=== PATIENT | female | born 1945 | race African-American/Black ===

== ENCOUNTER → 2018-11-05 | Outpatient (CLI) | payer MEDICARE ==
--- NOTE | 2018-11-05 11:59 | KCIC ---
BRAIN W/O CONTRAST Date: 11/05/2018 10:15 AM Indication: Left facial tingling Comparison: CT head 07/04/2015. Technique: Multiplanar multisequence MRI of the brain was performed without intravenous contrast using the standard protocol. Findings: No acute infarct. No acute or chronic hemorrhage. The ventricles are normal in size and configuration without hydrocephalus. Moderate scattered FLAIR hyperintensities in the subcortical and periventricular deep white matter, a nonspecific finding, most commonly seen with chronic small vessel ischemic disease. Mild generalized cerebral and cerebellar volume loss. The scalp and calvarium are normal. The pituitary and sella are normal. No Chiari malformation. The visualized upper cervical spine is normal. The visualized orbits and globes are normal. Sphenoid sinus disease.. The mastoid air cells are clear. Normal flow voids within the vertebral, basilar, and internal carotid arteries indicating patency. IMPRESSION: No acute infarct, hemorrhage, mass, or hydrocephalus. Moderate scattered FLAIR hyperintensities in the subcortical and periventricular deep white matter, a nonspecific finding, most commonly seen with chronic small vessel ischemic disease. Mild generalized cerebral and cerebellar volume loss. Electronically signed by: Jurgen Winchester MD (11/05/2018 11:56 AM) [facility]
== END | disposition home or self-care (01) ==
LOC: KCIC MRI 09:59
PROVIDERS: ATTEND Psychiatry & Neurology Neurology with Special Qualifications in Child Neurology
DX: G93.89 Other specified disorders of brain (principal); G31.84 Mild cognitive impairment of uncertain or unknown etiology
CPT/HCPCS: 70551

== ENCOUNTER → 2018-12-19 | Outpatient (CLI) | payer MEDICARE ==
[2018-12-08 14:54] VITALS: BP 183/75
[~2018-12-19] MED LIST: AMLO5TAB10 PO; DOCU-109 PO; DORZ10DR7 EACHEYE; FURO20TA3 PO; IBUP200C9 PO; LATA2.5D3 EACHEYE; LEVE500T56 PO; LOSA1TAB22 PO; MELO7.5T29 PO; MIRT15TA3 PO; NEO/3.5O OS; PRED5DRO16 OS
--- NOTE | 2018-12-19 19:29 | EEG ---
DATE OF SERVICE: 12/19/2018 EEG NUMBER: [id number] OBJECTIVE: This is a 73-year-old female patient with a history of seizure or seizure-like episodes and confusional episodes. EEG was requested to evaluate cerebral activity and help rule out seizure. METHODS: Twenty electrodes were applied according to the international 10-20 electrode placement system. EKG monitoring, hyperventilation, intermittent photic stimulation, monopolar and bipolar montages are routinely utilized. The record was obtained on a digital system with video monitoring. FINDINGS: 1. Background: The patient was recorded in the awake, drowsy, and sleep states. The overall background amplitude is 10-25 microvolts. A posterior dominant rhythm of 8-10 Hz is observed. 2. Abnormalities: No specific epileptiform discharge or electrographic seizure is seen. No focal or diffuse slowing. 3. Activation: Hyperventilation was not performed because the patient did not perform the technique. Intermittent photic stimulation was performed with photic driving. No specific epileptiform discharge or electrographic seizure induced by intermittent photic stimulation. IMPRESSION: This EEG is within the normal limits of the study for the awake, drowsy, and sleep states. No focal, lateralizing, specific epileptiform discharge or electrographic seizure is seen. NIKHIL MATHEW MD DR: RUBIA/cony JOB#: [id number] / [id number]
== END | disposition home or self-care (01) ==
LOC: RT 08:51
PROVIDERS: ATTEND Psychiatry & Neurology Neurology
DX: R41.0 Disorientation, unspecified (principal); Z86.73 Personal history of transient ischemic attack (TIA), and cerebral infarction without residual deficits; Z86.69 Personal history of other diseases of the nervous system and sense organs
CPT/HCPCS: 95816

== ENCOUNTER 2019-03-03 19:06 | Emergency (ER) | payer MEDICARE ==
[~2019-03-03] VITALS: Ht 157.5 cm; Wt 96.2 kg
[2019-03-03 20:25] LABS: BASO % 1 % (0-3); EOS # 0.1 x10^3/uL (0.0-0.7); EOS % 2 % (0-3); HEMATOCRIT 32.4 % (36.0-47.0); HEMOGLOBIN 10.9 g/dL (12.0-15.5); LYMPH % 17 % (24-48); MEAN CORPUSCULAR HEMOGLOBIN 33 pg (25-35); MEAN CORPUSCULAR HGB CONC 34 g/dL (31-37); MEAN CORPUSCULAR VOLUME 99 fL (79-100); MONO # 0.4 x10^3/uL (0.0-1.1); MONO % 7 % (0-9); NEUT # 4.3 x10^3/uL (1.8-7.7); NEUT % 73 % (31-73); PLATELET COUNT 227 x10^3/uL (140-400); RED BLOOD COUNT 3.27 x10^6/uL (3.50-5.40); WHITE BLOOD COUNT 5.9 x10^3/uL (4.0-11.0)
[2019-03-03 20:35] LABS: CALCIUM 8.8 mg/dL (8.5-10.1); GFR 65.4; POTASSIUM 4.1 mmol/L (3.5-5.1)
[2019-03-03 20:42] LABS: ALBUMIN 3.3 g/dL (3.4-5.0); ALBUMIN/GLOBULIN RATIO 0.6 (1.0-1.7); TOTAL BILIRUBIN 0.3 mg/dL (0.2-1.0); TOTAL PROTEIN 8.4 g/dL (6.4-8.2)
--- NOTE | 2019-03-03 20:42 | PHYS DOC ---
Past Medical History Past Medical History: Hypertension, Seizure, Other Additional Past Medical Histor: GLAUCOMA Past Surgical History: Other Additional Past Surgical Histo: EYE R/T GLAUCOMA Alcohol Use: None Drug Use: None Adult General Chief Complaint Chief Complaint: ALTERED MENTAL STATUS [facility] HPI 74-year-old female presents to the emergency Department complaints of inter mittent confusion off and on yesterday at least 2 times and today at least 2 times. Patient was here on December 08 with dc diagnosis of altered mental status, seizure, hypertension, and lactic acidosis. She was started upon Her at that time however states that she has not had a refill that medication from neurology. According to records she was discharged with Keppra, had a normal EEG at that time. Family states that the intermittent episodes of confusion were similar to those when she was diagnosed with seizure like activity. Review of Systems Review of Systems Constitutional: Denies fever or chills [] Respiratory: Denies cough or shortness of breath [] Cardiovascular: No additional information not addressed in HPI [] GI: Denies abdominal pain, nausea, vomiting, bloody stools or diarrhea [] : Denies dysuria or hematuria [] Musculoskeletal: Denies back pain or joint pain [] Integument: Denies rash or skin lesions [] Neurologic: Denies headache, focal weakness or sensory changes [] All other systems were reviewed and found to be within normal limits, except as documented in this note. Allergies Allergies Allergies Coded Allergies Type Severity Reaction Last Updated Verified No Known Drug Allergies 12/05/18 No Physical Exam Physical Exam Constitutional: Well developed, well nourished, no acute distress, non-toxic appearance. [] HENT: Normocephalic, atraumatic, bilateral external ears normal, oropharynx moist, no oral exudates, nose normal. [] Eyes: PERRLA, EOMI, conjunctiva normal, no discharge. [] Cardiovascular: Heart rate regular rhythm, no murmur [] Lungs & Thorax: Bilateral breath sounds clear to auscultation [] Abdomen: Bowel sounds normal, soft, no tenderness, no masses, no pulsatile masses. [] Skin: Warm, dry, no erythema, no rash. [] Extremities: No tenderness, no edema. [] Neurologic: Alert and oriented X 3, no focal deficits noted. [] Psychologic: Affect normal, judgement normal, mood normal. [] Current Patient Data Vital Signs Vital Signs Date Time Temp Pulse Resp B/P (MAP) Pulse Ox O2 Delivery O2 Flow Rate FiO2 03/03/19 19:07 98.0 83 22 168/77 (107) 98 Room Air 98.0 Lab Values Laboratory Tests Test 03/03/19 19:45 03/03/19 19:50 03/03/19 21:31 White Blood Count 5.9 x10^3/uL (4.0-11.0) Red Blood Count 3.27 x10^6/uL (3.50-5.40) L Hemoglobin 10.9 g/dL (12.0-15.5) L Hematocrit 32.4 % (36.0-47.0) L Mean Corpuscular Volume 99 fL (79-100) Mean Corpuscular Hemoglobin 33 pg (25-35) Mean Corpuscular Hemoglobin Concent 34 g/dL (31-37) Red Cell Distribution Width 16.0 % (11.5-14.5) H Platelet Count 227 x10^3/uL (140-400) Neutrophils (%) (Auto) 73 % (31-73) Lymphocytes (%) (Auto) 17 % (24-48) L Monocytes (%) (Auto) 7 % (0-9) Eosinophils (%) (Auto) 2 % (0-3) Basophils (%) (Auto) 1 % (0-3) Neutrophils # (Auto) 4.3 x10^3/uL (1.8-7.7) Lymphocytes # (Auto) 1.0 x10^3/uL (1.0-4.8) Monocytes # (Auto) 0.4 x10^3/uL (0.0-1.1) Eosinophils # (Auto) 0.1 x10^3/uL (0.0-0.7) Basophils # (Auto) 0.0 x10^3/uL (0.0-0.2) Sodium Level 138 mmol/L (136-145) Potassium Level 4.1 mmol/L (3.5-5.1) Chloride Level 101 mmol/L (98-107) Carbon Dioxide Level 27 mmol/L (21-32) Anion Gap 10 (6-14) Blood Urea Nitrogen 18 mg/dL (7-20) Creatinine 1.0 mg/dL (0.6-1.0) Estimated GFR (Cockcroft-Gault) 65.4 BUN/Creatinine Ratio 18 (6-20) Glucose Level 124 mg/dL (70-99) H Lactic Acid Level 1.2 mmol/L (0.4-2.0) Calcium Level 8.8 mg/dL (8.5-10.1) Total Bilirubin 0.3 mg/dL (0.2-1.0) Aspartate Amino Transferase (AST) 15 U/L (15-37) Alanine Aminotransferase (ALT) 10 U/L (14-59) L Alkaline Phosphatase 101 U/L (46-116) Ammonia 16 mcmol/L (11-34) Total Protein 8.4 g/dL (6.4-8.2) H Albumin 3.3 g/dL (3.4-5.0) L Albumin/Globulin Ratio 0.6 (1.0-1.7) L Glucose (Fingerstick) 121 mg/dL (70-99) H Urine Collection Type Unknown Urine Color Yellow Urine Clarity Hazy Urine pH 7.0 Urine Specific [place] 1.015 Urine Protein Negative mg/dL (NEG-TRACE) Urine Glucose (UA) Negative mg/dL (NEG) Urine Ketones (Stick) Negative mg/dL (NEG) Urine Blood Negative (NEG) Urine Nitrite Negative (NEG) Urine Bilirubin Negative (NEG) Urine Urobilinogen Dipstick 1.0 mg/dL (0.2 mg/dL) Urine Leukocyte Esterase Negative (NEG) Urine RBC 0 /HPF (0-2) Urine WBC 1-4 /HPF (0-4) Urine Squamous Epithelial Cells Many /LPF Urine Bacteria Few /HPF (0-FEW) Laboratory Tests 03/03/19 19:45 Laboratory Tests 03/03/19 19:45 EKG EKG [] Radiology/Procedures Radiology/Procedures [facility] [address] [place], [place] [id number] IMAGING REPORT Signed PATIENT: KARI RHODES ACCOUNT: [id number] : 1945 LOCATION: ER AGE: 74 SEX: F EXAM STATUS: REG ER ORD. PHYSICIAN: LILLIAN GRAYSON MD REASON: altered mental status PROCEDURE: CT HEAD WO CONTRAST CT HEAD WO CONTRAST Date: 03/03/2019 9:01 PM Clinical Indication: Altered mental status Comparison: 12/05/2018. Technique: 5 mm axial tomographic images were obtained of the head without contrast. These were viewed on brain and bone windows. One or more of the following dose reduction techniques were utilized: Automated exposure control (AEC), Adjustment of mA and/or kV according to patient size, Use of iterative reconstruction technique such as ASiR, CT scan done according to ALARA and image gently/image wisely Findings: Mild generalized cerebral and cerebellar volume loss. Mild nonspecific periventricular hypoattenuation, most commonly seen with chronic small vessel ischemic disease. Calcified atherosclerosis of the bilateral cavernous and paraclinoid internal carotid arteries and intracranial vertebral arteries. No intra- or extra-axial mass or fluid collection. No acute hemorrhage. The ventricles are normal in size, shape, and morphology. The singh-white matter junction is normal. The subarachnoid cisterns are patent. The visualized paranasal sinuses are normal. The visualized portions of the orbits and globes are normal. The mastoid air cells are clear. The trucker topogram shows no lytic lesion or fracture. Impression: No acute intracranial process. Mild cerebral volume loss. Mild chronic small vessel ischemic disease. Electronically signed by: Zak Winchester MD (03/03/2019 9:12 PM) [facility] DICTATED and SIGNED BY: ZAK WINCHESTER MD DATE: 03/03/192111 [] Course & Med Decision Making Course & Med Decision Making Pertinent Labs and Imaging studies reviewed. (See chart for details) []74-year-old female presents to the emergency Department complaints of intermittent confusion off and on yesterday at least 2 times and today at least 2 times. Patient was here on December 08 with dc diagnosis of altered mental status, seizure, hypertension, and lactic acidosis. She was started upon med at that time however states that she has not had a refill that medication from neurology. According to records she was discharged with Keppra, had a normal EEG at that time. Sge Labs and imaging reviewed CT without acute process Labs reviewed as well Discussed restarting keppra with follow up with Neurology - patient and family agree. Return precautions provided Dragon Disclaimer Dragon Disclaimer This electronic medical record was generated, in whole or in part, using a voice recognition dictation system. Departure Departure Impression: Primary Impression: Seizure Disposition: HOME, SELF-CARE Condition: IMPROVED Referrals: YUMI SHIN DO (PCP) Patient Instructions: Seizure Disorder, Child, Generalized Tonic-Clonic Additional Instructions: Recommend follow up with PCP 3 - 5 days Return to the ER with worsening symptoms, intractable pain, fever, altered mental status Tylenol/Motrin as needed for pain Refill of Keppra provided for 30 days Scripts Levetiracetam (KEPPRA) 500 Mg Tablet 1 TAB PO BID for 30 Days, #60 TAB 0 Refills Prov: LILLIAN GRAYSON MD 03/03/19 LILLIAN GRAYSON MD Mar 03, 2019 20:42
--- NOTE | 2019-03-03 21:15 | RAD ---
CT HEAD WO CONTRAST Date: 03/03/2019 9:01 PM Clinical Indication: Altered mental status Comparison: 12/05/2018. Technique: 5 mm axial tomographic images were obtained of the head without contrast. These were viewed on brain and bone windows. One or more of the following dose reduction techniques were utilized: Automated exposure control (AEC), Adjustment of mA and/or kV according to patient size, Use of iterative reconstruction technique such as ASiR, CT scan done according to ALARA and image gently/image wisely Findings: Mild generalized cerebral and cerebellar volume loss. Mild nonspecific periventricular hypoattenuation, most commonly seen with chronic small vessel ischemic disease. Calcified atherosclerosis of the bilateral cavernous and paraclinoid internal carotid arteries and intracranial vertebral arteries. No intra- or extra-axial mass or fluid collection. No acute hemorrhage. The ventricles are normal in size, shape, and morphology. The singh-white matter junction is normal. The subarachnoid cisterns are patent. The visualized paranasal sinuses are normal. The visualized portions of the orbits and globes are normal. The mastoid air cells are clear. The voice systems engineer topogram shows no lytic lesion or fracture. Impression: No acute intracranial process. Mild cerebral volume loss. Mild chronic small vessel ischemic disease. Electronically signed by: Jurgen Winchester MD (03/03/2019 9:12 PM) [facility]
[2019-03-03 21:43] LABS: BILIRUBIN,URINE NEGATIVE (NEG); COLOR,URINE YELLOW; NITRITE,URINE NEGATIVE (NEG); PROTEIN,URINE NEGATIVE (NEG-TRACE)
[2019-03-03 21:45] LABS: CLARITY,URINE HAZY
[2019-03-03 21:49] LABS: RBC,URINE 0 /HPF (0-2)
[2019-03-03 21:51] LABS: BACTERIA,URINE FEW /HPF (0-FEW); SQUAMOUS EPITHELIAL CELL,UR MANY /LPF
[2019-03-03 22:35] VITALS: BP 153/73
[2019-03-03] MEDS ORDERED: LEVE500T56 PO (22:53)
[2019-03-03] MEDS ORDERED: levETIRAcetam 500 MG TABLET PO SCH (23:15)
[2019-03-03] MEDS ORDERED: levETIRAcetam 500 MG TABLET PO ONE (23:45)
--- NOTE | 2019-03-04 05:52 | EKG ---
[facility] [address] [place] [address] Test Date: 2019-03-03 Test Time: 20:02:29 Pat Name: KARI RHODES Department: Room: Gender: Female Box Fabricator: : 1945 Requested By: LILLIAN GRAYSON Order Number: [id number] Reading MD: Lon Barnes Measurements Intervals [place] Rate: 82 P: 37 [place]: 228 QRS: -8 QRSD: 88 T: 24 QT: 352 QTc: 414 Interpretive Statements SINUS ARRHYTHMIA PROLONGED [place] INTERVAL LEFTWARD AXIS ABNORMAL ECG Electronically Signed On 03-09-2019 15:10:12 OFFICE TECHNOLOGY INSTRUCTOR by Lon Barnes
== END 2019-03-03 23:03 | disposition home or self-care (01) ==
LOC: ER 19:06
DX: R56.9 Unspecified convulsions (principal); R41.0 Disorientation, unspecified; I10 Essential (primary) hypertension; E87.2 Acidosis
CPT/HCPCS: 36415; 70450; 80053; 81001; 82140; 82962; 83605; 85025; 93005; 99285-25

== ENCOUNTER → 2021-04-03 | Day surgery (SDC) | payer MEDICARE ==
[~2021-04-03] VITALS: Ht 162.6 cm; Wt 106.8 kg
[~2021-04-03] MED LIST changes: +AMLO-186 PO; -AMLO5TAB10 PO; +DONE5TAB7 PO; +IV RINGERS,LACTATED 1000ML 1,000 ML IV SCH; +LIDOCAINE 2% PF 5 ML VIAL. ONE; +MIRT-7 PO; -MIRT15TA3 PO; +PROPOFOL 10 MG/ML (20ML) VIAL. IV ONE
[2021-04-03 12:40] VITALS: BP 196/88
--- NOTE | 2021-04-03 13:09 | PDOC1 ---
History and Physical Date of Admission Date of Admission DATE: 04/03/21 TIME: 13:02 Identification/Chief Complaint Chief Complaint Diarrhea/screen for colon cancer. Source Source: Chart review, Patient History of Present Illness History of Present Illness 76 y/o female seen in our office in January for diarrhea following treatment for diverticulitis. Diarrhea has improved now. Denies constipation or overt bleeding. Never had CRC screening. Denies heartburn, dysphagia, PUD, GB, liver or pancretic history. Past Medical History Cardiovascular: HTN Pulmonary: Other ([place]) CENTRAL NERVOUS SYSTEM: Dementia Musculoskeletal: Osteoarthritis Past Surgical History Past Surgical History: No pertinent history Family History Family History: Hypertension Social History Smoke: No ALCOHOL: none Drugs: None, Other Current Medications Current Medications Current Medications Ringer's Solution 1,000 ml @ 50 mls/hr Q20H IV Last administered on 04/03/21at 12:43; Start 04/03/21 at 07:00; Stop 04/03/21 at 18:59 Lidocaine HCl (Lidocaine Pf 2% Vial) 5 ml STK-MED ONCE .ROUTE ; Start 04/03/21 at 12:32; Stop 04/03/21 at 12:32; Status DC Propofol (Diprivan) 200 mg STK-MED ONCE IV ; Start 04/03/21 at 12:32; Stop at 12:32; Status DC Active Scripts Active Keppra (Levetiracetam) 500 Mg Tablet 1 Tab PO BID 30 Days Keppra (Levetiracetam) 500 Mg Tablet 500 Mg PO BID Reported Donepezil Hcl 5 Mg Tablet 1 Tab PO DAILY Prednisolone Acetate 5 Ml Drops.susp 1 Drop OS BID Mirtazapine 15 Mg Tablet 1 Tab PO QHS Dorzolamide-Timolol Eye Drops (Dorzolamide Hcl/Timolol Maleat) 10 Ml Drops 1 Drop EACHEYE BID Latanoprost 2.5 Ml Drops 1 Drop EACHEYE QHS Losartan-Hctz 100-25 Mg Tab (Losartan/Hydrochlorothiazide) 1 Each Tablet 1 Tab PO DAILY Furosemide 20 Mg Tablet 1 Tab PO DAILY Allergies Allergies: Coded Allergies: No Known Drug Allergies (Unverified , 02/23/21) ROS Review of System Otherwise negative. Physical Exam General: Alert, Oriented X3, Cooperative, No acute distress HEENT: PERRLA, EOMI Lungs: Clear to auscultation Heart: S1S2, RRR, no gallops, no murmurs Abdomen: Normal bowel sounds, Soft, No tenderness, No hepatosplenomegaly, No masses Rectal Exam: deferred (to procedure) Extremities: No cyanosis, No edema Skin: No significant lesion Neuro: Normal speech, Strength at 5/5 X4 ext, Normal tone, Sensation intact, Cranial nerves 3-12 NL, Reflexes 2+ Psych/Mental Status: Mental status NL, Mood NL Vitals Vitals Vital Signs Date Time Temp Pulse Resp B/P (MAP) Pulse Ox O2 Delivery O2 Flow Rate FiO2 04/03/21 12:40 97.6 65 20 96 97.6 VTE Prophylaxis Ordered VTE Prophylaxis Devices: No VTE Pharmacological Prophylaxi: No Assessment/Plan Assessment/Plan IMP: CRC screening. Diverticulosis Diarrhea, improved. REC: Colonoscopy. NARESH YUSUF MD Apr 03, 2021 13:09
--- NOTE | 2021-04-03 13:38 | PDOC4 ---
PROCEDURE Procedure Colonoscopy with biopsies. Indication: Screening/diarrhea Meds: per anesthesia Findings: ROCÍO normal. --'Scope advanced to TI. Prep adequate for polyps >6mm. Mucosa normal in colon and TI. Multiple diverticula, sigmoid to ascending. No polyps, etc. Random biopsies in cecum/ascending and rectum. IH's on retroflex. Hunter. well. IMP: Diverticulosis Hemorrhoids. REC: Reassure. Await path. Resume meds, diet. F/u with me in 2 weeks. NARESH YUSUF MD Apr 03, 2021 13:38
[2021-04-03 14:12] VITALS: BP 153/65
--- NOTE | 2021-04-04 17:18 | PATHOLOGY ---
[facility] Accession Number: [id number] . 01 Material submitted: . PART A: cecum - CECUM/ASCENDING COLON BX PART B: rectum - RECTAL BX . 01 Clinical history: . DIARRHEA COLONOSCOPY . 02 Diagnosis: A. Colonic mucosa, cecum/ascending colon biopsies: - No diagnostic abnormalities. . B. Colorectal mucosa, rectal biopsies: - No diagnostic abnormalities. . 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 02 Comment: Sections of the cecum/ascending colon biopsy reveal multiple segments of colonic mucosa. There is no evidence of a chronic destructive colitis, lymphocytic colitis, or collagenous colitis. . Sections of the rectal biopsy reveal multiple segments of rectal mucosa showing focal reactive superficial epithelial hyperplastic changes. There is no evidence of a chronic destructive colitis, lymphocytic colitis, or collagenous colitis. There are no adenomatous changes or evidence of malignancy. . 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 02 Electronically signed: . Deon Mcgill MD, Pathologist NPI- [id number] . 01 Gross description: . A. The specimen is received in formalin, labeled "Gayden, Rima, cecum/ascending colon BX". Received are 4 segments of pale stauffer tissue ranging in size from 0.3-0.5 cm in maximum dimensions. The specimen is entirely submitted in cassette A1. . B. The specimen is received in formalin, labeled "Gayden, Rima, rectal BX". Received are 2 segments of pale stauffer tissue measuring 0.3 and 0.4 cm in maximum dimensions. The specimen is entirely submitted in cassette B1. ([facility]; 04/03/2021) NRI/NRI 04/03/2021 1810 Local . 02 Pathologist provided ICD-10: R19.7, Z12.11 . 02 CPT . 907809, 221512 Specimen Comment: A courtesy copy of this report has been sent to [phone], [phone] Specimen Comment: [id number] Specimen Comment: Report sent to / DR SHIN Performed at: 01 [facility] [address], [place] [id number] MD Roberto Atkins MD Phone: [phone] Performed at: 02 [facility] [address] [place], [place] [id number] MD Deon Mcgill MD Phone: [phone]
== END | disposition home or self-care (01) ==
LOC: ENDOS 12:01
PROVIDERS: ATTEND Internal Medicine Gastroenterology
DX: R19.7 Diarrhea, unspecified (principal); K57.30 Diverticulosis of large intestine without perforation or abscess without bleeding; K64.0 First degree hemorrhoids; K63.89 Other specified diseases of intestine; I10 Essential (primary) hypertension; G47.33 Obstructive sleep apnea (adult) (pediatric); M19.90 Unspecified osteoarthritis, unspecified site; Z79.899 Other long term (current) drug therapy; Z98.890 Other specified postprocedural states; Z82.49 Family history of ischemic heart disease and other diseases of the circulatory system
CPT/HCPCS: 45380; J2704; 88305